=== PATIENT | male | born 1950 | race Caucasian/White ===

== ENCOUNTER → 2017-06-24 | Outpatient (CLI) | payer MEDICARE, BC ==
[~2017-06-24] MED LIST: AMIO200T2 PO; CHOL50009 PO; FOLI-49 PO; LEVO175T2 PO; LISI10TA2 PO; METO-335 PO; PRAV20TA63 PO; RIVA15TA PO
== END | disposition home or self-care (01) ==
LOC: PUL 08:35
DX: J98.8 Other specified respiratory disorders (principal)
CPT/HCPCS: 94060; 94726; 94729

== ENCOUNTER → 2018-07-23 | Outpatient (CLI) | END | disposition home or self-care (01) ==

== ENCOUNTER → 2019-01-04 | Outpatient (CLI) | payer MEDICARE, BC ==
[~2019-01-04] MED LIST changes: +ALBUTEROL 0.083% (NEB) 2.5 MG/3 ML AMP ONE; -AMIO200T2 PO; +AMIO200T4 PO
== END | disposition home or self-care (01) ==
LOC: PUL 09:11
PROVIDERS: ATTEND Internal Medicine Interventional Cardiology
DX: R06.02 Shortness of breath (principal); I48.92 Unspecified atrial flutter; G47.33 Obstructive sleep apnea (adult) (pediatric); R00.1 Bradycardia, unspecified; J98.11 Atelectasis; I51.7 Cardiomegaly; I70.0 Atherosclerosis of aorta
CPT/HCPCS: 71046; 80053; 84443; 85025; 94060; 94664; 94726; 94729